=== PATIENT | male | born 1980 | race Caucasian/White ===

== ENCOUNTER 2019-03-06 13:37 | Emergency (ER) | payer OTHER ==
[2019-03-06] MEDS ORDERED: oxyCODONE/Acetamin 5/325 MG* TAB PO ONE (14:38)
[2019-03-06] MEDS ORDERED: Ketorolac *IM* INJ* 60 MG/2 ML VIAL IM ONE (14:38)
--- OUTSIDE RECORDS SUMMARY | 2019-03-06 15:04 | XMS REPORT | Continuity of Care Document ---
:1980 External Reference #:[id number] Author Name Raquel Roque Care Team Providers Name Role Phone Azeem Cruz M.D. Primary Care Physician Unavailable Payers Date Identification Numbers Payment Provider Subscriber Effective: 2007 Policy Number: [id number] [employer] Medicaid David Norman PayID: [id number] [address] [address] [place] [address] Problems Active Problems Provider Date Sprain of knee and leg Meliton Collazo M.D. Onset: 05/16/2015 Family History Date Family Member(s) Observation Comments Father Unknown Onset: (12/27/2015) (age Mother Chronic Obstructive Pulmonary 53 Years) Disease (COPD) Mother MGF dec of [place] at age of 53 Siblings 2 Social History Type Date Description Comments Sex Unknown Marital Status Lives With Occupation Self employed ETOH Use Denies alcohol use Tobacco Use Start: Unknown Heavy tobacco smoker (more than 10 cigarettes/day) Recreational Drug Use Current Drug User Recreational Drug Use marijuana Smoking Status Reviewed: 02/17/19 Heavy tobacco smoker (more than 10 cigarettes/day) Exercise Type/Frequency Exercises sporadically Allergies, Adverse Reactions, Alerts Description No Known Drug Allergies Medications Active Medications SIG Qnty Indications Ordering Provider Date Spiriva Handihaler 1 unit inhalation Unknown daily 18mcg Capsules Bupropion HCL ER (SR) 1 by mouth daily Unknown 150mg Tablets ER 12HR Proventil HFA 2 puffs by mouth Unknown every 4 hours prn 108(90Base) mcg/Act Aerosol Chantix starter pack as Unknown 0.5mg Tablets directed 12/28/15 pt to start History Medications No Active Medications Unknown 05/16/2015 - 11/30/2015 Medications Administered in Office Medication SIG Qnty Indications Ordering Provider Date Depomedrol 40MG Bindu Hardy M.D. 12/16/2018 Injection Vital Signs Date Vital Result Comment 02/17/2019 9:19am Height 67 inches 5'7" Weight 129.00 lb Heart Rate 72 /min BP Systolic Sitting 122 mmHg BP Diastolic Sitting 82 mmHg Pain Level 0 BMI (Body Mass Index) 20.2 kg/m2 12/30/2018 9:17am Height 67 inches 5'7" Weight 129.00 lb BP Systolic Sitting 122 mmHg BP Diastolic Sitting 70 mmHg Pain Level 4 BMI (Body Mass Index) 20.2 kg/m2 12/16/2018 9:20am Height 67 inches 5'7" Weight 129.00 lb Heart Rate 59 /min BP Systolic 110 mmHg BP Diastolic 70 mmHg Body Temperature 96.8 F Pain Level 3 BMI (Body Mass Index) 20.2 kg/m2 12/27/2015 2:12pm Height 67.25 inches 5'7.25" Weight 129.50 lb with shoes Heart Rate 62 /min BP Systolic 110 mmHg LA reg cuff BP Diastolic 58 mmHg LA reg cuff BMI (Body Mass Index) 20.1 kg/m2 Ejection Fraction >50% 11/26/07 05/16/2015 2:15pm Height 67.25 inches 5'7.25" Weight 129.00 lb Heart Rate 90 /min BP Systolic 118 mmHg BP Diastolic 77 mmHg BMI (Body Mass Index) 20.1 kg/m2 Results Test Date Facility Test Result H/L Range Note Laboratory test 01/01/2016 [facility] C Reactive < 1.00 mg/L N < 5.00 [address] [place] [address] [phone] CBC Auto Diff 01/01/2016 [facility] White Blood 9.6 10^3/uL N 3.5-10.[address] [place] [address] [phone] Red Blood Count 4.68 10^6/uL N 4.0-5.4 Hemoglobin 14.4 g/dL N 14.0-18.0 Hematocrit 43 % N 42-52 Mean Corpuscular Volume 92 fL N 80-94 Mean Corpuscular Hemoglobin 31 pg N 27-31 Mean Corpuscular HGB Conc 34 g/dL N 31-36 Red Cell Distribution Width 13 % N 10.5-15 Platelet Count 329 10^3/uL N 150-450 Mean Platelet Volume 9 um3 N 7.4-10.4 Abs Neutrophils 5.3 10^3/uL N 1.5-7.7 Abs Lymphocytes 2.7 10^3/uL N 1.0-4.8 Abs Monocytes 0.7 10^3/uL N 0-0.8 Abs Eosinophils 0.7 10^3/uL High 0-0.6 Abs Basophils 0.1 10^3/uL N 0-0.2 Abs Nucleated RBC 0.01 10^3/uL N Granulocyte % 55.9 % N 38-83 Lymphocyte % 28.0 % N 25-47 Monocyte % 7.5 % N 1-9 Eosinophil % 7.7 % High 0-6 Basophil % 0.9 % N 0-2 Nucleated Red Blood Cells % 0.1 N Laboratory test 01/01/2016 [facility] Erythrocyte Sed 17 mm/Hr High 0-14 [address] [place] [address] [phone] Lipid Panel - 01/01/2016 [facility] Creatine 96 U/L N 10-223 [address] Kinase(CK) [place] [address] [phone] Comp Metabolic 01/01/2016 [facility] Sodium 139 N 133-[address] mmol/[place] [address] [phone] Potassium 4.1 mmol/L N 3.5-5.0 Chloride 104 mmol/L N 101-111 Co2 Carbon Dioxide 30 mmol/L N 22-32 Anion Gap 5 mmol/L N 2-11 Glucose 93 mg/dL N 70-100 Blood Urea Nitrogen 6 mg/dL N 6-24 Creatinine 1.03 mg/dL N 0.67-1.17 BUN/Creatinine Ratio 5.8 Low 8-20 Calcium 9.5 mg/dL N 8.6-10.3 Total Protein 7.2 g/dL N 6.4-8.9 Albumin 4.3 g/dL N 3.2-5.2 Globulin 2.9 g/dL N 2-4 Albumin/Globulin Ratio 1.5 N 1-3 Total Bilirubin 0.40 mg/dL N 0.2-1.0 Alkaline Phosphatase 74 U/L N 34-104 Alt 16 U/L N 7-52 Ast 19 U/L N 13-39 Egfr Non- 82.2 N >60 Egfr 105.7 N >60 4 Lipid Profile 01/01/2016 [facility] Triglycerides 110 mg/dL N 5 (Trig/Chol/HDL) [address] [place] [address] [phone] Cholesterol 128 mg/dL N 6 HDL Cholesterol 29.9 mg/dL N 7 LDL Cholesterol 76 mg/dL N 8 Neutrophil Cytoplasmic 01/01/2016 [facility] C-Anca Negative N Negative AB [address] [place] [address] [phone] P-Anca Negative N Negative 9 Laboratory test 01/01/2016 [facility] Anti Nuclear 0.2 U N [address] [place] [address] [phone] Rheumatoid Factor <15 IU/mL N <15 11 1 Acute inflammation: >10.00 2 FASTING cc pmd 3 FASTING cc pmd 4 Because ethnic data is not always readily available, this report includes an eGFR for both -Americans and non- Americans. The National Kidney Disease Education Program (NKDEP) does not endorse the use of the MDRD equation for patients that are not between the ages of 18 and 70, are , have extremes of body size, muscle mass, or nutritional status, or are non- or non-. According to the National Kidney Foundation, irrespective of diagnosis, the stage of the disease is based on the level of kidney function: Stage Description GFR(mL/min/1.73 m(2)) 1 Kidney damage with normal or decreased GFR 90 2 Kidney damage with mild decrease in GFR 60-89 3 Moderate decrease in GFR 30-59 4 Severe decrease in GFR 15-29 5 Kidney failure <15 (or dialysis) 5 Desirable <150 Borderline high 150-199 High 200-499 Very High >500 6 Desirable <200 Borderline high 200-239 High >239 7 Low <40 Desirable: 40-60 High: >60 8 Desirable: <100 mg/dL Near Optimal: 100-129 mg/dL Borderline High: 130-159 mg/dL High: 160-189 mg/dL Very High: >189 mg/dL 9 Negative for cANCA and pANCA patterns by immunofluorescence. Test Performed by: [place] [address] Tie Puller: Dion Aguilar II, M.D., Ph.D. 10 REFERENCE VALUE <=1.0 (Negative) Test Performed by: [place] [address] Tie Puller: Dion Aguilar II, M.D., Ph.D. 11 Test Performed by: [place] [address] Tie Puller: Dion Aguilar II, M.D., Ph.D. 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 Office Visit 12/16/2018 Orthopedic Services Bindu Hardy G56.03 Carpal tunnel 9:00a Of C.M.AFrancisco Higginbotham syndrome, bilateral upper limbs G56.01 Carpal tunnel syndrome, right upper limb Office Visit 12/27/2015 Chetan Bell I31.3 Pericardial effusion 2:00p Cardiology Anahy Lopes (noninflammatory) R07.9 Chest pain, unspecified J44.1 Chronic obstructive pulmonary disease w (acute) exacerbation Office Visit 06/20/2015 1:00p Orthopedic Meliton Collazo, S83.8x1D Sprain of other [facility] specified parts C.M.AFrancisco of right knee, subs encntr Office Visit 05/16/2015 2:00p Orthopedic Meliton Collazo, S83.8x1A Sprain of other [facility] specified parts C.M.A. of right knee, init encntr Plan of Treatment Future Appointment(s):04/21/2019 9:30 am - KENDRICK Driscoll at [facility]surgery [facility]02/17/2019 - Heidi Kay, PAM43.06 Spondylolysis, lumbar regionReferral:Juni Chapman MD, Interventional Pain MedicFollow up:RTC in 2 months
--- NOTE | 2019-03-06 15:47 | ED ---
Throat Pain/Nasal Congestion - HPI Summary HPI Summary: Pt. is a 38 y.o male who presents to the ER for dental pain x several days. PT. states he saw his PCP yesterday and was rx pnc and toradol. Pt. states he has been taking as directed but pain today is severe. He denies fever, vomiting, facial swelling. No significant past medical hx. Sxs are mild in severity. Pt. has apt. with his dentist on Friday. - History of Current Complaint Chief Complaint: EDDentalPain Time Seen by Provider: 03/06/19 14:09 Hx Obtained From: Patient - Allergies/Home Medications Allergies/Adverse Reactions: Allergies Allergy/AdvReac Type Severity Reaction Status Date / Time No Known Allergies Allergy Verified 03/06/19 13:40 PMH/Surg Hx/FS Hx/Imm Hx Previously Healthy: Yes Endocrine/Hematology History: Denies: Hx Diabetes Cardiovascular History: Denies: Hx Congestive Heart Failure, Hx Hypertension, Hx Pacemaker/ICD History: Denies: Hx Renal Disease Sensory History: Psychiatric History: Denies: Hx Panic Disorder - Surgical History Surgery Procedure, Year, and Place: FATTY CYST REMOVED FROM RLQ IN 2006. Infectious Disease History: No Infectious Disease History: Denies: Traveled Outside the [place] in Last 30 Days - Family History Known Family History: Positive: None, Non-Contributory - Social History Occupation: Employed Full-time Lives: With Family Alcohol Use: Rare Substance Use Type: Reports: Excessive Caffeine, Marijuana Smoking Status (MU): Heavy Every Day Tobacco Smoker Review of Systems Constitutional: Negative Negative: Fever, Chills Positive: Dental Pain Gastrointestinal: Negative Negative: Abdominal Pain, Vomiting, Nausea Skin: Negative Neurological: Negative All Other Systems Reviewed And Are Negative: Yes Physical Exam Triage Information Reviewed: Yes Vital Signs On Initial Exam: Initial Vitals Temp Pulse Resp BP Pulse Ox 98.8 F 60 14 161/93 97 03/06/19 13:39 03/06/19 13:39 03/06/19 13:39 03/06/19 13:39 03/06/19 13:39 Vital Signs Reviewed: Yes Appearance: Positive: Pain Distress - Pt. lying on bed rolling in pain. Nontoxic. SO present. Skin: Positive: Warm, Dry Head/Face: Positive: Normal Head/Face Inspection Eyes: Positive: Normal, EOMI Dental: Positive: Other - Poor dentition throughout with dental decay. Pain diffuse to right lower teeth. Gums are erythematous and edamatous. No drainable abscess noted. No submandibular edema. No trismus or muffled voice. No necrosis. Neck: Positive: Supple Musculoskeletal: Positive: Normal, Strength/ROM Intact Neurological: Positive: Normal, CN Intact II-III Psychiatric: Positive: Affect/Mood Appropriate Diagnostics - Vital Signs Vital Signs Temp Pulse Resp BP Pulse Ox 03/06/19 14:50 20 03/06/19 13:39 98.8 F 60 14 161/93 97 - Laboratory Lab Statement: Any lab studies that have been ordered have been reviewed, and results considered in the medical decision making process. EENT Course/Dx - Course Course Of Treatment: Pt. with dental decay. Afebrile. No abscess or signs of samaria's. Pt. appears extremely uncomfortable. Pt. given a dose of percocet and toradol. Pain greatly improved. PNC rx confirmed in system. Will rx 2 days of pain medication. Advised to continue toradol and pnc as directed. Will see dentist on Friday. Pt. understands and agrees with plan. RESIDENTIAL MORTGAGE UNDERWRITER reviewed. - Differential Diagnoses Differential Diagnoses: Dental Abscess, Dental Caries, Periodontic Abscess - Diagnoses Provider Diagnoses: Dental decay Discharge - Sign-Out/Discharge Documenting (check all that apply): Patient Departure Patient Received Moderate/Deep Sedation with Procedure: No - Discharge Plan Condition: Improved Disposition: HOME Prescriptions: oxyCODONE/Acetamin 5/325 MG* [Percocet 5/325 TAB*] 1 tab PO Q6H PRN #8 tab MDD 4 PRN Reason: Pain - Moderate Patient Education Materials: Toothache (ED) Referrals: Aj Gilbert MD [Primary Care Provider] - Additional Instructions: Follow up with your dentist on Friday as scheduled Pain medication as directed Continue antibiotic as directed Return to ER if symptoms change or worsen - Billing Disposition and Condition Condition: IMPROVED Disposition: Home
[2019-03-06 16:31] VITALS: BP 100/74
== END 2019-03-06 16:30 | disposition home or self-care (01) ==
LOC: ED 13:37
DX: K02.9 Dental caries, unspecified (principal); F17.210 Nicotine dependence, cigarettes, uncomplicated
CPT/HCPCS: 96372; 99281; A9270-GY; J1885